=== PATIENT | male | born 1970 | race African-American/Black ===

== ENCOUNTER 2025-05-25 07:56 | Emergency (ER) | payer OTHER, SELFPAY ==
--- NOTE | 2025-05-25 08:36 | ER ---
Nurse's Notes [facility] Name: Willian Watters Age: 55 yrs Sex: Male : 1970 Arrival Date: 05/25/2025 Time: 07:56 Bed 5 Private MD: Diagnosis: Gout, unspecified;Low back pain Presentation: 05/25 08:13 Chief complaint: Right foot pain x 2 days, hx of gout. Coronavirus screen: At this hb time, the client does not indicate any symptoms associated with coronavirus-19. Ebola Screen: No symptoms or risks identified at this time. Initial Sepsis Screen: Does the patient meet any 2 criteria? No. Patient's initial sepsis screen is negative. Does the patient have a suspected source of infection? No. Patient's initial sepsis screen is negative. Risk Assessment: Do you want to hurt yourself or someone else? Patient reports no desire to harm self or others. Onset of symptoms was May 24, 2025. 08:13 Method Of Arrival: Ambulatory hb 08:13 Acuity: YASSINE 4 hb Triage Assessment: 08:15 General: Appears in no apparent distress. uncomfortable, Behavior is calm, cooperative. hb Pain: Pain currently is 8 out of 10 on a pain scale. Neuro: GCS 15. Cardiovascular: Patient's skin is warm and dry. Respiratory: Respiratory effort is even, unlabored, Respiratory pattern is regular, symmetrical. Musculoskeletal: Reports right foot pain. Historical: - Allergies: 08:14 unknown medication; hb - PMHx: 08:14 diabetes mellitus; Gout; Hypercholesterolemia; hb 08:15 Hypertension; hb - Immunization history:: Adult Immunizations up to date. - Infectious Disease History:: Denies. - Social history:: Smoking status: Patient denies any tobacco usage or history of. Screenin:16 [facility] ED Fall Risk Assessment (Adult) History of falling in the last 3 months, hb including since admission No falls in past 3 months (0 pts) Confusion or Disorientation No (0 pts) Intoxicated or Sedated No (0 pts) Impaired Gait No (0 pts) Mobility Assist Device Used No (0 pt) Altered Elimination No (0 pt) Score/Fall Risk Level 0 - 2 = Low Risk Oriented to surroundings, Maintained a safe environment, Educated pt \T\ family on fall prevention, incl call for assistance when getting out of bed. Abuse screen: Denies threats or abuse. Denies injuries from another. Nutritional screening: No deficits noted. Tuberculosis screening: No symptoms or risk factors identified. Assessment: 08:16 General: See triage assessment. hb 09:11 Reassessment: Patient appears in no apparent distress at this time. Patient and/or hb family updated on plan of care and expected duration. Pain level reassessed. Patient is alert, oriented x 3, equal unlabored respirations, skin warm/dry/pink. Vital Signs: 08:13 BP 158 / 87; Pulse 89; Resp 16; Temp 98.1; Pulse Ox 100% on R/A; Weight 140.61 kg; hb Height 5 ft. 10 in. ; Pain 8/10; 08:13 Body Mass Index 44.48 (140.61 kg, 177.8 cm) hb 08:13 Pain Scale: Adult hb ED Course: 08:06 Patient arrived in ED. cj3 08:08 Bry[facility] Leal [facility]C [facility]. dr5 08:08 Paul Campa MD is Attending Physician. dr5 08:14 Triage completed. hb 08:15 Arm band placed on. hb 08:16 Patient has correct armband on for positive identification. Provided Education on: hb medication. 08:16 No provider procedures requiring assistance completed. Patient did not have IV access hb during this emergency room visit. 08:19 Deja Cronin, DAWSON is Primary Nurse. hb Administered Medications: 08:21 Drug: Dexamethasone IM 10 mg IM once Route: IM; Site: left deltoid; hb 09:11 Follow up: Response: No adverse reaction hb 09:11 Drug: Indomethacin PO 50 mg PO once Route: PO; hb 09:11 Follow up: Response: Medication administered at discharge. hb 09:11 Drug: Allopurinol PO 100 mg PO once Route: PO; hb 09:11 Follow up: Response: Medication administered at discharge. hb Medication: 08:16 VIS not applicable for this client. hb Outcome: 08:35 Discharge ordered by . dr5 09:12 Discharged to home ambulatory, hb 09:12 Condition: stable 09:12 Discharge instructions given to patient, Instructed on discharge instructions, follow up and referral plans. medication usage, Demonstrated understanding of instructions, follow-up care, medications, Prescriptions given X 2, 09:12 Patient left the ED. hb Signatures: Deja Cronin RN RN hb Bryson Leal, WARP KNITTER HELPER-C WARP KNITTER HELPER-Cdr5 Funmilayo Alejandro cj3 Corrections: (The following items were deleted from the chart) 08:15 08:14 PMHx: Hypertensive disorder; hb hb
--- NOTE | 2025-05-25 08:36 | EDPHYS ---
Physician Documentation [facility] Name: Willian Watters Age: 55 yrs Sex: Male : 1970 Arrival Date: 05/25/2025 Time: 07:56 Bed 5 Private MD: ED Physician Paul Campa HPI: 05/25 08:41 This 55 yrs old Black Male presents to ER via Ambulatory with complaints of Foot Pain. dr5 08:41 Onset: The symptoms/episode began/occurred 2 day(s) ago. Patient is a 55-year-old male dr5 with history of diabetes, gout, hyperlipidemia, hypertension coming in with right lateral foot pain that he states is consistent with his gout. Patient reports he is been out of his gout medication for the past 3 weeks and has a regular primary care doctor appointment on Wednesday for medication refills. Patient also reports generalized chronic low back pain and is requesting a steroid injection. Patient denies bowel or bladder incontinence, perirectal numbness, numbness tingling bilateral lower legs.. Historical: - Allergies: 08:14 unknown medication; hb - PMHx: 08:14 diabetes mellitus; Gout; Hypercholesterolemia; hb 08:15 Hypertension; hb - Immunization history:: Adult Immunizations up to date. - Infectious Disease History:: Denies. - Social history:: Smoking status: Patient denies any tobacco usage or history of. ROS: 08:41 Constitutional: as per hpi dr5 Exam: 08:41 Constitutional: This is a well developed, well nourished patient who is awake, alert, dr5 and in no acute distress. Head/Face: Normocephalic, atraumatic. Eyes: Pupils equal round and reactive to light, extra-ocular motions intact. Lids and lashes normal. Conjunctiva and sclera are non-icteric and not injected. Cornea within normal limits. Periorbital areas with no swelling, redness, or edema. Neck: Trachea midline, no thyromegaly or masses palpated, and no cervical lymphadenopathy. Supple, full range of motion without nuchal rigidity, or vertebral point tenderness. No Meningismus. Chest/axilla: Normal chest wall appearance and motion. Nontender with no deformity. No lesions are appreciated. Cardiovascular: Regular rate and rhythm with a normal S1 and S2. Normal PMI, no JVD. No pulse deficits. Respiratory: Lungs have equal breath sounds bilaterally, clear to auscultation. No rales, rhonchi or wheezes noted. No increased work of breathing, no retractions or nasal flaring. Abdomen/GI: Soft, non-tender, non-distended Skin: Warm, dry with normal turgor. Normal color with no rashes, no lesions, and no evidence of cellulitis. MS/ Extremity: Pulses equal, no cyanosis. Neurovascular intact. Full, normal range of motion. Neuro: Awake and alert, GCS 15, oriented to person, place, time, and situation. Cranial nerves II-XII grossly intact. Motor strength 5/5 in all extremities. Sensory grossly intact. Cerebellar exam normal. Normal gait. 08:41 Back: pain, that is moderate, ROM is normal, normal spinal alignment noted, 08:41 Musculoskeletal/extremity: Extremities: grossly normal except: noted in the lateral dr5 side of left foot: tenderness, erythema, swelling, ROM: no acute changes, intact in all extremities, Circulation is intact in all extremities. Pulses: Sensation intact. Vital Signs: 08:13 BP 158 / 87; Pulse 89; Resp 16; Temp 98.1; Pulse Ox 100% on R/A; Weight 140.61 kg; hb Height 5 ft. 10 in. ; Pain 8/10; 08:13 Body Mass Index 44.48 (140.61 kg, 177.8 cm) hb 08:13 Pain Scale: Adult hb MDM: 08:08 Medical Screening Exam initiated dr5 08:41 Differential diagnosis: viral Infection, bacterial infection, Gout, chronic low back dr5 pain. Data reviewed: vital signs, nurses notes. Consideration of Admission/Observation Escalation of care including admission/observation considered. Escalation considered patient found to have acute gout attack with fever or abnormal vital signs. 08:41 I considered the following discharge prescriptions or medication management in the [facility] emergency department I discussed and recommended Over The Counter medications, Medications were administered in the Emergency Department. See MAR. Care significantly affected by the following chronic conditions: Diabetes, Hypertension, Hyperlipidemia. Care significantly affected by the following Social Determinants of Health: Poor access to healthcare and/or lack of insurance, Poor access to transportation, Problems related to employment. Counseling: I had a detailed discussion with the patient and/or guardian regarding the historical points, exam findings, and any diagnostic results supporting the discharge/admit diagnosis, the presence of at least one elevated blood pressure reading (>120/80) during this emergency department visit, the need for outpatient follow up, for definitive care, a family practitioner, to return to the emergency department if symptoms worsen or persist or if there are any questions or concerns that arise at home. Medication response: Dexamethasone, indomethacin, allopurinol. Response to treatment: the patient's symptoms have markedly improved after treatment. Special discussion: I discussed with the patient/guardian in detail that at this point there is no indication for admission to the hospital. It is understood, however, that if the symptoms persist or worsen the patient needs to return immediately for re-evaluation. Based on the history and exam findings, there is no indication for further emergent testing or inpatient evaluation. I discussed with the patient/guardian the need to see the primary care provider for further evaluation of the symptoms. ED course: Steroid injection given in ER. Will have patient follow-up with primary care doctor on Wednesday as scheduled. Medication given in ER. All questions answered. Strict ER precautions given. Administered Medications: 08:21 Drug: Dexamethasone IM 10 mg IM once Route: IM; Site: left deltoid; hb 09:11 Follow up: Response: No adverse reaction hb 09:11 Drug: Indomethacin PO 50 mg PO once Route: PO; hb 09:11 Follow up: Response: Medication administered at discharge. hb 09:11 Drug: Allopurinol PO 100 mg PO once Route: PO; hb 09:11 Follow up: Response: Medication administered at discharge. hb Disposition: 09:48 Co-signature as Attending Physician, Paul Campa MD. rn Disposition Summary: 05/25/25 08:35 Discharge Ordered Notes: Location: Home dr5 Condition: Stable dr5 Diagnosis - Gout, unspecified dr5 - Low back pain dr5 Followup: dr5 - With: Emergency Department - When: As needed - Reason: Worsening of condition Followup: dr5 - With: Private Physician - When: 1 - 2 days - Reason: Recheck today's complaints, Continuance of care, Re-evaluation by your physician Discharge Instructions: - Discharge Summary Sheet dr5 - Acute Back Pain, Adult dr5 - Gout dr5 - Back Exercises, [id number] dr5 Forms: - Work release form dr5 - Medication Reconciliation Form dr5 - Patient Portal Instructions dr5 - Leadership Thank You Letter dr5 Prescriptions: - indomethacin 50 mg Oral capsule - take 1 capsule ORAL route 3 times per day administer with food or milk; 30 dr5 capsule; Refills: 0, Product Selection Permitted - Ibuprofen 800 mg Oral Tablet - take 1 tablet ORAL route every 12 hours As needed take with food; 20 tablet; dr5 Refills: 0, Product Selection Permitted - Allopurinol 100 mg Oral Tablet - take 1 tablet ORAL route once daily; 30 tablet; Refills: 0, Product Selection dr5 Permitted Signatures: Paul Campa MD MD rn Baxter, Heather, RN RN hb Rhodes, Dustin, STORY READER-C STORY READER-Cdr5 Corrections: (The following items were deleted from the chart) 08:15 08:14 PMHx: Hypertensive disorder; hb hb 08:43 08:41 Constitutional: This is a well developed, well nourished patient who is awake, dr5 alert, and in no acute distress. Head/Face: Normocephalic, atraumatic. Eyes: Pupils equal round and reactive to light, extra-ocular motions intact. Lids and lashes normal. Conjunctiva and sclera are non-icteric and not injected. Cornea within normal limits. Periorbital areas with no swelling, redness, or edema. Neck: Trachea midline, no thyromegaly or masses palpated, and no cervical lymphadenopathy. Supple, full range of motion without nuchal rigidity, or vertebral point tenderness. No Meningismus. Chest/axilla: Normal chest wall appearance and motion. Nontender with no deformity. No lesions are appreciated. Cardiovascular: Regular rate and rhythm with a normal S1 and S2. Normal PMI, no JVD. No pulse deficits. Respiratory: Lungs have equal breath sounds bilaterally, clear to auscultation. No rales, rhonchi or wheezes noted. No increased work of breathing, no retractions or nasal flaring. Abdomen/GI: Soft, non-tender, non-distended Skin: Warm, dry with normal turgor. Normal color with no rashes, no lesions, and no evidence of cellulitis. MS/ Extremity: Pulses equal, no cyanosis. Neurovascular intact. Full, normal range of motion. Neuro: Awake and alert, GCS 15, oriented to person, place, time, and situation. Cranial nerves II-XII grossly intact. Motor strength 5/5 in all extremities. Sensory grossly intact. Cerebellar exam normal. Normal gait. dr5
[2025-05-25] MEDS ORDERED: INDOMETHACIN 25 MG CAP PO ONE ×2 (09:00)
[2025-05-25 09:17] VITALS: BP 158/87; TEMP 98.1; O2SAT 100
== END 2025-05-25 09:12 | disposition home or self-care (01) ==
LOC: ER 07:56
DX: M10.9 Gout, unspecified (principal); M54.50 Low back pain, unspecified
CPT/HCPCS: 96372; 99284; J1100